=== PATIENT | female | born 1975 | race Hispanic/Latino ===

== ENCOUNTER 2019-04-12 07:53 | Day surgery (SDC) | payer OTHER ==
[~2019-04-12] VITALS: Ht 157.5 cm; Wt 55.3 kg
[~2019-04-12 07:53] MED LIST: SODIUM CHLORIDE 0.9% 1000ML 1,000 ML IV ONE
[2019-04-12] MEDS ORDERED: OMEP20TA25 PO (08:25)
[2019-04-12] MEDS ORDERED: LINA145C PO (08:25)
[2019-04-12 08:28] VITALS: BP 130/87
[2019-04-12] MEDS ORDERED: PROPOFOL 10 MG/ML 20ML VIAL IV ONE ×2 (08:50→09:02)
[2019-04-12 09:02] LABS: INR 1.09 (0.85-1.15); PROTHROMBIN TIME 11.4 SEC (9.6-11.6)
[2019-04-12 09:18] VITALS: BP 94/52
[2019-04-12 09:23] VITALS: BP 102/59
[2019-04-12 09:28] VITALS: BP 100/66
[2019-04-12 09:33] VITALS: BP 98/61
[2019-04-12 09:36] VITALS: BP 122/81
== END 2019-04-12 09:45 | disposition home or self-care (01) ==
LOC: DAH 07:53 → ENDO 07:53
PROVIDERS: ATTEND Internal Medicine
DX: K85.00 Idiopathic acute pancreatitis without necrosis or infection (principal); K21.9 Gastro-esophageal reflux disease without esophagitis; E03.9 Hypothyroidism, unspecified; Z90.49 Acquired absence of other specified parts of digestive tract; Z90.710 Acquired absence of both cervix and uterus; Z98.890 Other specified postprocedural states; Z79.899 Other long term (current) drug therapy; Z88.5 Allergy status to narcotic agent; Z98.84 Bariatric surgery status; K59.04 Chronic idiopathic constipation
CPT/HCPCS: 36415; 43237; 43239; 85610; 88305 ×2; A4215; A4221; A4222; A4223; A4606; A4620; A4663; J2704 ×2; J7030